=== PATIENT | female | born 1990 | race Caucasian/White ===

== ENCOUNTER 2017-12-25 02:49 | Emergency (ER) | payer SELFPAY ==
[2017-12-25 03:52] VITALS: BP 131/78; PULSE 91; TEMP 98; BMI 29.2
[2017-12-25] MEDS ORDERED: ACETAMINOPHEN 500 MG TABLET (FP) PO ONE (03:52)
[2017-12-25] MEDS ORDERED: ACETAMINOPHEN 325 MG TABLET (FP) PO ONE (04:07)
[2017-12-25] MEDS ORDERED: ACETAMINOPHEN 325 MG TABLET (FP) ONE (04:08)
[2017-12-25 04:51] LABS: URINE APPEARANCE CLEAR; URINE BILIRUBIN NEGATIVE (<2.0 mg/dL); URINE COLOR LTYELLOW; URINE GLUCOSE (UA) NEGATIVE (NEGATIVE); URINE KETONE NEGATIVE (NEGATIVE); URINE LEUK ESTERASE NEGATIVE (NEGATIVE); URINE NITRITE NEGATIVE (NEGATIVE); URINE PROTEIN NEGATIVE (NEGATIVE); URINE UROBILINOGEN NEGATIVE mg/dL (0.2-1.0)
[2017-12-25 04:55] LABS: HCG,QUALITATIVE URINE Negative
[2017-12-25 04:58] LABS: EPI CELLS RARE /HPF (FEW); URINE BACTERIA RARE /hpf (NONE SEEN); URINE MUCUS RARE
--- NOTE | 2017-12-25 05:04 | PDOC ---
History of Present Illness - General Chief Complaint: Pain Stated Complaint: ABD PAIN Time Seen by Provider: 12/25/17 03:34 History Source: Patient Exam Limitations: No Limitations - History of Present Illness Initial Comments: 27 y/o F with no sig pmh presents with pelvic pain x 2 days. LNMP was 21 days ago. Denies fever, chills, sob, cp, abd pain, n/v/d, dysuria, hematuria, unusual vaginal discharge, vaginal bleeding, dyspareunia. Is sexually active with 1 partner for long time; denies hx of STDs. Tried Motrin at home without much relief in pain. Denies abdominal/pelvic surgeries. 12/25/17 04:59 Past History - Past Medical History Allergies/Adverse Reactions: Allergies Allergy/AdvReac Type Severity Reaction Status Date / Time No Known Allergies Allergy Verified 12/25/17 03:51 Home Medications: Ambulatory Orders Cephalexin [Keflex] 500 mg PO BID #6 capsule 08/10/17 Anemia: Yes COPD: No - Suicide/Smoking/Psychosocial Hx Smoking History: Current every day smoker Have you smoked in the past 12 months: Yes Number of Cigarettes Smoked Daily: 6 Information on smoking cessation initiated: No 'Breaking Loose' booklet given: 08/10/17 Hx Alcohol Use: No Drug/Substance Use Hx: No Review of Systems - Review of Systems Comments:: See HPI 12/25/17 05:02 *Physical Exam - Vital Signs Last Vital Signs Temp Pulse Resp BP Pulse Ox 98 F 91 H 19 131/78 99 12/25/17 02:50 12/25/17 02:50 12/25/17 02:50 12/25/17 02:50 12/25/17 02:50 - Physical Exam General Appearance: No: Apparent Distress Respiratory/Chest: positive: Lungs Clear, Normal Breath Sounds. negative: Respiratory Distress Cardiovascular: positive: Regular Rhythm, Regular Rate, S1, S2. negative: Murmur Female Pelvic Exam: positive: normal external exam, discharge (small clear whitish discharge), adnexal tenderness (+L adnexal TTP), other (+uterine TTP). negative: CMT, lesions, Bartholin mass, vaginal bleeding Gastrointestinal/Abdominal: positive: Normal Bowel Sounds, Soft. negative: Tender, Distended, Guarding, Rebound Musculoskeletal: negative: CVA Tenderness Neurologic: positive: Fully Oriented, Alert, Normal Mood/Affect ED Treatment Course - ADDITIONAL ORDERS Additional order review: Laboratory Results 12/25/17 04:25 Urine Color Ltyellow Urine Appearance Clear Urine pH 5.0 Ur Specific Arrey 1.021 Urine Protein Negative Urine Glucose (UA) Negative Urine Ketones Negative Urine Blood 1+ H Urine Nitrite Negative Urine Bilirubin Negative Urine Urobilinogen Negative Ur Leukocyte Esterase Negative Urine HCG, Qual Negative - Medications Given in the ED: ED Medications Discontinued Medications Generic Name Dose Route Start Last Admin Trade Name Rowena PRN Reason Stop Dose Admin Acetaminophen 1,000 mg 12/25/17 03:52 12/25/17 04:12 Tylenol - PO 12/25/17 03:53 Not Given ONCE ONE Acetaminophen 650 mg 12/25/17 04:07 12/25/17 04:12 Tylenol - PO 12/25/17 04:08 650 mg ONCE ONE Administration Medical Decision Making - Medical Decision Making 27 y/o F, current status uncertain, presents with pelvic pain. Differentials to consider: ectopic , UTI, ovarian cyst, ovarian torsion (though patient appears comfortable on exam so less likely) Plan: UCG, UA, Tylenol, pelvic ultrasound 12/25/17 05:04 Patient UA and UCG negative When looking to re-examine patient, patient was no where to be found I had previously discussed with patient that ultrasound will not be available until 7 AM, but patient mentioned she would wait for results of her UA and UCG Patient had no IV in place ED checked thoroughly; patient likely walked out 12/25/17 05:23 *DC/Admit/Observation/Transfer Diagnosis at time of Disposition: Pelvic pain - Discharge Dispostion Disposition: ELOPED Condition at time of disposition: Fair Decision to Admit order: No - Referrals - Patient Instructions - Post Discharge Activity
== END 2017-12-25 05:15 | disposition left against medical advice (07) ==
LOC: JER 02:49
DX: R10.2 Pelvic and perineal pain (principal)
CPT/HCPCS: 81003; 81015; 84703; 99281-25